=== PATIENT | male | born 1995 | race Caucasian/White ===

== ENCOUNTER 2018-05-02 13:03 | Emergency (ER) | payer OTHER, SELFPAY ==
[2018-05-02 13:08] VITALS: BP 140/81; PULSE 113; RESP 18; TEMP 37; O2SAT 100
--- NOTE | 2018-05-02 13:20 | ED.GENADUL_ITS ---
Discharge Plan Discharge Details Chief Complaint: Laceration Clinical Impression: Laceration of hand, right Reason For Visit: right hand lac ED Provider: Mickey Childress Disposition Patient Disposition: HOME Home Meds and New Rx's Prescriptions: No Action No Known Home Meds RF: 0 Discharge Instructions Instructions: Care For Your Stitches (ED), Laceration (ED) Additional Instructions: have the sutures removed in 10 days if redness spreads up the hand or yellow/white discharge comes from the wound return to the emergency department Discharge Data Discharge Physician: Mickey Childress Medical Decision Making MDM Narrative Medical decision making narrative: 23yo male who denies chronic medical problems was hit in right hand with softball. Has no pain in the fingers and full rom so dobut fx, states the ball just bent his pinky and tore the skin between the fingers, did not fall or strike head. Has no evidence of tendon injury on exam. Will close with sutures and d/c home Differential Diagnosis lac, abrasion HPI - General Adult General Date/Time Provider Initiated Documentation: 05/02/18 13:14 . Limitations to Documentation: no limitations . Information obtained by: patient . History of Present Illness 23 year old M presents to the emergency department with the chief complaint of right hand laceration between webbing of pinky and ring finger, described as mild, with intensity rated at 2. Quality is described as aching, and is localized to the right and upper extremity. Patient reports no radiation. Patient started experiencing this hour(s) (1) and it has been constant. No relieving factors improve symptom(s), No exacerbating factors reported . Patient notes no other symptoms.. Patient did receive the following treatments prior to arrival, none Related Data Home Medications Medication Instructions Recorded Confirmed Unknown [No Known Home Meds] 05/02/18 05/02/18 Allergies Allergy/AdvReac Type Severity Reaction Status Date / Time No Known Allergies Allergy Unverified 05/02/18 13:08 General Stated Complaint: Laceration DESI: 4 Review of Systems Review of Systems All systems reviewed & are unremarkable except as noted in HPI and below Constitutional Denies chills, Denies fever(s) and Denies weakness Eyes Patient Denies loss of vision ENT Denies change in voice Cardiovascular Denies chest pain and Denies dyspnea Respiratory Denies dyspnea Gastrointestinal Denies abdominal pain, Denies nausea and Denies vomiting Genitourinary Denies dysuria Musculoskeletal Denies joint swelling Integumentary/Breasts Denies rash Neurologic Denies loss of vision and Denies weakness Psychiatric Denies depression Endocrine Denies cold intolerance and Denies heat intolerance Allergic/Immunologic Reports urticaria [facility] Social History Smoking/Tobacco Use Status: Never Exam Const General: no acute distress Orientation: alert HENMT Head: normal to inspection Ears: external ears normal General nose exam: external nose normal Mouth: moist mucous membranes Eyes General: appearance normal, both eyes and all related structures Neck Neck: normal visual inspection Resp Effort & Inspection: normal respiratory effort and able to speak in complete sentences Cardio Rate: regular rate Skin General skin exam: no rashes or lesions noted Neuro General: alert and oriented x3 Extrem General: full ROM and normal capillary refill Right upper extremity: full ROM, normal capillary refill and hand (right hand has 1.5cm laceration that goes from posterior to anterior hand between the pinky and ring finger, full rom in flexion and extension at all joints of both fingers) Psych Mental Status: mental status grossly normal Course Vital Signs Temperature 37.0 C 05/02/18 13:08 Pulse 113 H 05/02/18 13:08 Respiratory Rate 18 05/02/18 13:08 Blood Pressure 140/81 05/02/18 13:08 Pulse Oximetry 100 05/02/18 13:08 Temperature 37.0 C 05/02/18 13:08 Pulse 113 H 05/02/18 13:08 Respiratory Rate 18 05/02/18 13:08 Blood Pressure 140/81 05/02/18 13:08 Pulse Oximetry 100 05/02/18 13:08 Procedures Laceration Laceration 1: Site: upper extremity (right hand) Side (If applicable): right Size (cm): 1.5 Description: linear Depth: simple, single layer Local Anesthetic: Lidocaine 1% Amount of anesthesia used (mL): 5 Pre-repair: irrigated extensively Skin layer closed with: nylon Size (cm): 4-0 Number of sutures: 4 Technique: simple, interrupted
== END 2018-05-02 13:46 | disposition home or self-care (01) ==
PROVIDERS: Emergency Provider Emergency Medicine
DX: S61.411A Laceration without foreign body of right hand, initial encounter (principal); W21.07XA Struck by softball, initial encounter; Y93.64 Activity, baseball
CPT/HCPCS: 12001